=== PATIENT | male | born 1960 | race African-American/Black ===

== ENCOUNTER → 2017-01-16 | Outpatient (CLI) | payer OTHER ==
[2017-01-16 11:58] VITALS: BP 141/90; RESP 14
--- NOTE | 2017-01-16 12:16 | P.HPIM ---
History of Present Illness H&P Date: 01/16/17 Chief Complaint: low back pain This is a 56-year-old patient referred by Dr. Cohen for chronic pain in low back with radiation to LLE and both feet. Patient has been taking medications from Dr. Cohen including [place] medications with some relief; Dr. Cohen has told him that he needs spine surgery . Patient denies adverse drug effects from medications. Patient also denies new-onset weakness, bowel/bladder incontinence , or any other signs or symptoms of cauda equina syndrome. There are no signs of acute intoxication, and no indications of medication diversion or overuse. Patient notes that pain worsens significantly with standing and walking and improves with rest, heat, and medication. Patient has used several types of medications for pain, including NSAIDS, OPIOIDS ([place]), TRAMADOL. Patient HAS NOT had surgery. Patient HAS NOT had injections. Patient HAS had physical therapy recently. In addition to above, 13-point review of systems is also negative for chest pain , shortness of breath, changes in vision, changes in hearing, new onset weakness , abdominal pain, diarrhea, extreme fatigue, malaise, fever, skin changes, homicidal or suicidal ideation, or bowel or bladder incontinence. Vital Signs: Reviewed in EMR Gen: WDWN, AAOx3, NAD HEENT: NCAT, EOMI, hearing grossly normal Pulm: resp unlabored Abd: soft, NT, ND Neck: supple, trachea midline ROM in flexion lumbar spine: reduced ROM in extension lumbar spine: reduced Lumbar paravertebral tenderness: + Facet loading: + bilateral SI joint tenderness: + R > L Víctor's test: + R > L Straight leg raise: + LLE at 3 degrees Lower extremity: decreased strength secondary to pain LLE; decreased sensation in LLE to pinprick Neuro: CN II-XII grossly intact, muscle strength lower extremities PRESERVED Past Medical History - Past Family History Mother Family Medical History: CVA/TIA, Hypertension Father Family Medical History: Cancer Additional Family Medical History / Comment(s): multiple myloma Medications and Allergies Allergies Allergy/AdvReac Type Severity Reaction Status Date / Time No Known Allergies Allergy Verified 01/16/17 11:37 Physical Exam Vitals: Intake and Output 01/15/17 01/16/17 01/16/17 22:59 06:59 14:59 Other: Weight 98.43 kg Patient Weight 01/17/17 06:59 Weight 98.43 kg Results Comments: MRI lumbar spine without contrast dated 11/16/2016 demonstrates a disc bulge at the L1-L2 level that is abutting the exiting right L1 nerve root in the foramen. At the L3-L4 level there is bilateral facet hypertrophy and bulging disc and left paracentral disc protrusion contacting the left L3 nerve root within the foramen without jorge compression. At the L4-L5 level there is a right foraminal disc extrusion compressing the exiting right L4 nerve root within the foramen is moderate central canal stenosis due to a bulging disc and blood bilateral facet hypertrophy. At the L5-S1 level there is mild central canal stenosis due to bulging disc and bilateral facet hypertrophy there is severe left and moderate right neural foraminal narrowing due to osteophytic spurring and bulging disc. There is compression of the exiting L5 nerve root in the foramen. There is mild levoscoliosis. Assessment and Plan (1) Lumbar spinal stenosis Status: Chronic (2) Lumbar radiculopathy Status: Chronic (3) Lumbar spondylosis Status: Chronic Plan: Plan: 1. Explanation: Opioid and psychological risk scores were reviewed. Diagnoses , prognoses, and multiple treatment options including but not limited to physical therapy, interventional therapies, adjuvant medical therapies, narcotic medication therapies, and surgery were discussed with the patient and all questions were answered to the patient's satisfaction. 2. Opioid agreement: no opioids prescribed today 3. Counseling: The patient was counseled extensively on SMOKING CESSATION, BODY MASS INDEX, EXERCISE. Specifically, the patient was instructed regarding the importance of smoking cessation, weight control, and exercise in the context of both chronic pain and overall health. 4. Procedures: LESI series 5. Consultations: none 6. Investigations: none 7. Medications: none prescribed 8. Disposition: patient wishes to think more about LESIs, can f/u as needed PQRS measures: 1-Patient's medications are documented in the chart. 2-Tobacco use is positive, counseling given 3-Patient has not had a pneumococcal vaccine. 4-Advanced care planning discussed, patient unable to give. 5-Opioid contract signed with the patient. 6-Pain positive, follow-up visit or procedure PRN 7-Patient's blood pressure measured and documented, and patient will follow up with the primary care due to hypertension. 8-Patient's weight was measured, and body mass index ABOVE the normal limits, and counseling was done. Patient instructed to follow up with PCP. 9-Patient WAS NOT identified as an unhealthy alcohol user. Time with Patient: Greater than 30
== END | disposition home or self-care (01) ==
LOC: PNWHC3 11:26
PROVIDERS: ATTEND Anesthesiology
DX: M48.06 Spinal stenosis, lumbar region (principal); M47.26 Other spondylosis with radiculopathy, lumbar region
CPT/HCPCS: 99201

== ENCOUNTER 2018-02-05 12:42 | Emergency (ER) | payer BC, OTHER ==
[2018-02-05 12:49] VITALS: BP 144/89; PULSE 75; RESP 18; TEMP 98.2
--- NOTE | 2018-02-05 13:04 | ED ---
Extremity Problem HPI - General Chief complaint: Extremity Problem,Nontraumatic Stated complaint: knee pain Time Seen by Provider: 02/05/18 12:50 Source: patient, RN notes reviewed, old records reviewed Mode of arrival: ambulatory Limitations: no limitations - History of Present Illness Initial comments: Patient is a 57-year-old male presents emergency department today with chief complaint of right knee pain. 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 Patient states that he had no significant trauma to the knee. He states it does feel swollen. Patient states that he is able to ambulate without significant difficulty. The pain started today while he was at work and he left early. - Related Data Home Medications Medication Instructions Recorded Confirmed amLODIPine [Norvasc] 10 mg PO HS 01/16/17 02/05/18 diphenhydrAMINE [Benadryl] 25 mg PO HS 01/16/17 02/05/18 Previous Rx's Medication Instructions Recorded Ibuprofen 600 mg PO TID #20 tablet 02/05/18 Allergies Allergy/AdvReac Type Severity Reaction Status Date / Time No Known Allergies Allergy Verified 02/05/18 13:05 Review of Systems ROS Statement: Those systems with pertinent positive or pertinent negative responses have been documented in the HPI. ROS Other: All systems not noted in ROS Statement are negative. Past Medical History Past Medical History: Hypertension Additional Past Medical History / Comment(s): chronic back History of Any Multi-Drug Resistant Organisms: None Reported Past Surgical History: Breast Surgery, Orthopedic Surgery Additional Past Surgical History / Comment(s): right toe surgery, scrotum surgery as a chiild Past Anesthesia/Blood Transfusion Reactions: No Reported Reaction Past Psychological History: Anxiety, Depression Smoking Status: Current every day smoker Past Alcohol Use History: None Reported Past Drug Use History: None Reported - Past Family History Mother Family Medical History: CVA/TIA, Hypertension Father Family Medical History: Cancer Additional Family Medical History / Comment(s): multiple myloma General Exam - General Exam Comments Initial Comments: 57-year-old male. Alert and oriented. No significant distress. Limitations: no limitations General appearance: alert, in no apparent distress Head exam: Present: atraumatic, normocephalic, normal inspection Eye exam: Present: normal appearance, PERRL, EOMI. Absent: scleral icterus, conjunctival injection, periorbital swelling ENT exam: Present: normal exam, mucous membranes moist Neck exam: Present: normal inspection. Absent: tenderness, meningismus, lymphadenopathy Respiratory exam: Present: normal lung sounds bilaterally Cardiovascular Exam: Present: regular rate, normal rhythm, normal heart sounds. Absent: systolic murmur, diastolic murmur, rubs, gallop, clicks GI/Abdominal exam: Present: soft, normal bowel sounds. Absent: distended, tenderness, guarding, rebound, rigid Extremities exam: Present: normal inspection, full ROM, normal capillary refill. Absent: tenderness, pedal edema, joint swelling, calf tenderness Right Upper Leg exam: Present: normal inspection, full ROM Knee exam: Present: full ROM, swelling (Patient does have swelling noted to the anterior aspect of the knee. He does have full range of motion.), crepitus ( Patient is have crepitus with extension.). Absent: normal inspection Lower Leg exam: Present: normal inspection, full ROM Ankle exam: Present: normal inspection, full ROM Foot/Toe exam: Present: normal inspection, full ROM Neurovascular tendon exam: Present: no vascular compromise Gait: observed and normal Back exam: Present: normal inspection Neurological exam: Present: alert, oriented X3, CN II-XII intact Psychiatric exam: Present: normal affect, normal mood Skin exam: Present: warm, dry, intact, normal color. Absent: rash Course Vital Signs 02/05/18 12:46 Temperature 98.2 F Pulse Rate 75 Respiratory 18 Rate Blood Pressure 144/89 O2 Sat by Pulse 99 Oximetry Medical Decision Making - Medical Decision Making 57 -year-old male presents today with right knee pain and swelling. Patient has evidence of minor swelling. Patient at this time has full range of motion, normal pulses and sensation over the lower extremity. He does have some crepitus noted on full extension. Patient denies any fevers or chills. X-ray today shows evidence of moderate to severe arthritis with this most retail at first swelling. Patient at this time will be treated with a temperature medication Yared wrap. I discussed following up with PCP. Discussed return parameters. - Radiology Data Radiology results: report reviewed No Acute fracture dislocation. Small suprapatellar bursal fluid collection. Moderate to severe osteoarthritis. Disposition Clinical Impression: Knee osteoarthritis, Knee bursitis Disposition: HOME SELF-CARE Condition: Good Instructions: Osteoarthritis (ED), Knee Bursitis (ED) Additional Instructions: Patient advised follow-up with primary care provider and follow-up with autism motor specialist. Return to the emergency department if any alarming signs or symptoms occur. Prescriptions: Ibuprofen 600 mg PO TID #20 tablet Is patient prescribed a controlled substance at d/c from ED?: No Referrals: Jocelin Baeza MD [Primary Care Provider] - 1-2 days Esteban Arvizu MD [STAFF PHYSICIAN] - 1-2 days Time of Disposition: 13:33
--- NOTE | 2018-02-05 13:21 | XR ---
EXAMINATION TYPE: XR knee complete RT DATE OF EXAM: 02/05/2018 COMPARISON: NONE HISTORY: Pain TECHNIQUE: Four views are submitted. FINDINGS: Diffuse osteopenia. There is hypertrophic change and narrowing of the joint spaces particularly along the medial compartment and patellofemoral joint. There is a suprapatellar bursal fluid collection. O sseous structures are intact. No acute fracture seen. IMPRESSION: 1. No acute fracture or dislocation. 2. Small suprapatellar bursal fluid collection. 2. Moderate to severe osteoarthritis.
== END 2018-02-05 14:01 | disposition home or self-care (01) ==
LOC: EC 12:42
DX: M17.11 Unilateral primary osteoarthritis, right knee (principal); M70.51 Other bursitis of knee, right knee; I10 Essential (primary) hypertension; F17.200 Nicotine dependence, unspecified, uncomplicated; Z98.890 Other specified postprocedural states; Z79.899 Other long term (current) drug therapy
CPT/HCPCS: 99284

== ENCOUNTER → 2018-05-28 | Outpatient (CLI) | payer BC, OTHER ==
[2018-05-28 14:03] VITALS: BP 125/80; PULSE 75; RESP 18
--- NOTE | 2018-05-28 14:21 | P.PN ---
Subjective Progress Note Date: 05/28/18 This is a 58-year-old gentleman with history of lower back pain with radiation to the left lower extremity down to the mid calf area. He denies any numbness or tingling in the lower extremities or any weakness. The patient has been getting worse. He has been to our clinic once before about 2 years ago and that time we recommended that he gets an epidural steroid injection done but he was hesitant about that he wanted to think about it but right now he is willing to try it. He had seen a neurosurgeon who recommended that he gets surgery done on his back. His lumbar spine MRI showed multilevel of disc bulging, stenosis, neural foraminal stenosis and nerve root compression. The patient uses [facility] from different prescriber. Today, pt denies new-onset weakness, bowel/bladder incontinence, or any other signs or symptoms of cauda equina syndrome. There are no signs of acute intoxication, and no indications of medication diversion or overuse. In addition to above, 13-point review of systems is also negative for chest pain , shortness of breath, changes in vision, changes in hearing, new onset weakness , abdominal pain, diarrhea, extreme fatigue, malaise, fever, skin changes, homicidal or suicidal ideation, or bowel or bladder incontinence. Vital Signs: Reviewed in EMR Gen: AAOx3, NAD HEENT: PERRLA,hearing grossly normal Pulm: resp unlabored,CTA Heart:S1,S2, No Mur Neck: supple, trachea midline Neuro exam of the lower extremities: Absent deep tendon reflexes however the muscle strength is normal bilaterally. Straight leg raising test: Negative on the left side Tenderness in the paravertebral musculature: Mildly positive on the left side of his lumbar spine Neuro: CN II-XII grossly intact, Imaging: Reviewed in EMR/chart Assessment: Lumbar spondylosis without myelopathy Lumbar stenosis Plan: 1. Explanation: Opioid and psychological risk scores were reviewed. Diagnoses , prognoses, and multiple treatment options including but not limited to physical therapy, interventional therapies, adjuvant medical therapies, narcotic medication therapies, and surgery were discussed with the patient and all questions were answered to the patient's satisfaction. 2. Opioid agreement: We do not prescribe opioids for this patient 3. Counseling: The patient was counseled extensively on SMOKING CESSATION, BODY MASS INDEX, EXERCISE. Specifically, the patient was instructed regarding the importance of smoking cessation, obesity, and exercise in the context of both chronic pain and overall health. 4. Procedures: Scheduled for lumbar transforaminal epidural steroid injection on the left L4-5 level. We will do this procedure only once and if it does not give me with the results and then we will plan on doing lumbar diagnostic medial branch block. 5. Consultations: None 6. Investigations: None 7. Medications: None 8. Disposition: Return to clinic for the above-mentioned procedure as soon as possible 9. Maps were reviewed and were appropriate. PQRS measures: 1-Patient's medications are documented in the chart. 2-Tobacco use is positive, counseling given 3-Patient has not had a pneumococcal vaccine. 4-Advanced care planning discussed, patient unable to give 5-Opioid contract not signed with the patient. Opioids are not prescribed by our clinic 6-Pain positive, follow-up visit or procedure scheduled 7-Patient's blood pressure measured and documented within normal limits. 8-Patient's weight was measured, and body mass index in the normal limits, and counseling was done. 9-Patient WAS NOT identified as an unhealthy alcohol user. Objective - Vital Signs Vital signs: Vital Signs Temp Pulse 75 05/28/18 13:56 Resp 18 05/28/18 13:56 BP 125/80 05/28/18 13:56 Pulse Ox 98 05/28/18 13:56 Intake & Output 05/27/18 05/28/18 05/28/18 18:59 06:59 18:59 Weight 90.718 kg
== END | disposition home or self-care (01) ==
LOC: PNWHC3 13:48
PROVIDERS: ATTEND Anesthesiology
DX: M48.061 Spinal stenosis, lumbar region without neurogenic claudication (principal); M51.26 Other intervertebral disc displacement, lumbar region; M99.73 Connective tissue and disc stenosis of intervertebral foramina of lumbar region; M47.816 Spondylosis without myelopathy or radiculopathy, lumbar region; Z79.891 Long term (current) use of opiate analgesic; Z72.0 Tobacco use; Z71.6 Tobacco abuse counseling
CPT/HCPCS: 99211

== ENCOUNTER 2018-06-18 07:21 | Day surgery (SDC) | payer BC, OTHER ==
[2018-06-17 08:19] VITALS: BMI 29.4
[2018-06-18 07:40] VITALS: TEMP 98
[2018-06-18] MEDS ORDERED: LACTATED RINGERS 1,000 ML IV ONE (07:40)
[2018-06-18] MEDS ORDERED: LIDOCAINE 1% 20 ML VIAL (10MG/ML) FOR IV START INTRADERMA ONE (07:44)
--- NOTE | 2018-06-18 08:41 | P.PCN ---
Date of Procedure: 06/18/18 Anesthesia: MAC (Conscious sedation) Description of Procedure: DESCRIPTION OF PROCEDURE(S): PREOPERATIVE DIAGNOSIS: Lumbar radiculopathy POSTOPERATIVE DIAGNOSIS: Lumbar radiculopathy PROCEDURE 1. Transforaminal epidural steroid injection under fluoroscopic guidance left L4 5 2. Lumbar epidurogram ANESTHESIA: Local with 1% lidocaine 5 ml ; 2 mg of Versed and 50 g of fentanyl PROCEDURE INDICATION: The patient with low back pain and radiculopathy symptoms unresponsive to conservative treatment. PROCEDURE DESCRIPTION / TECHNIQUE: The patient was seen and identified in the preoperative area. Risks, benefits, complications, and alternatives were discussed with the patient. The patient agreed to proceed with the procedure and signed the consent. IV was started, and vital signs were stable. Patient was taken to the OR and time out was completed. The patient was placed in the prone position on procedure table and a pillow was placed under the abdomen to reduce lumbar lordosis. The lumbosacral area was prepped and draped in the usual sterile fashion. Vital signs were closely monitored during the procedure. Conscious sedation was used. Using oblique fluoroscopy, the chin of the ``Jesús dog at the pedicle and the skin and deeper tissues just below was localized with 1% lidocaine. Subsequently, a 22-gauge 3.5-inch spinal needle was advanced under a tunneled view fluoroscopic guidance just underneath the chin of the ``Jesús dog. Under lateral fluoroscopy, the needle was then advanced to the posterior border interforaminal space. After negative aspiration of CSF and blood and with no paresthesias, 1 mL of Omnipaque-240 contrast dye was injected excellent epidurogram. Subsequently, of the 10ml solution consisting of 10mg/ml dexamethasone with 1 ml PF normal saline, and 1 ml 0.25% marcaine 3ml was injected. Needle was removed. COMPLICATIONS: None COMMENTS: DISPOSITION / PLANS: The patient was placed in a supine position and transferred to the recovery area in a stable condition for observation. There was no evidence of lower extremity motor or sensory deficit after the procedure. Patient was discharged from the recovery room after meeting discharge criteria. Home discharge instructions were given to the patient by the staff. The patient was reexamined prior to discharge. follow up as needed
[2018-06-18] MEDS ORDERED: IV FLUID CONTINUATION 750 ML IV ONE (08:44)
--- NOTE | 2018-06-18 09:05 | FL ---
EXAMINATION TYPE: FL guided pain mgmt statistic DATE OF EXAM: 06/18/2018 HISTORY: Flouroscopy time 6 seconds of fluoroscopy provided. IMPRESSION: 1. Fluoroscopy time.
[2018-06-18 09:08] VITALS: BP 113/95; PULSE 73; RESP 18
== END 2018-06-18 09:22 | disposition home or self-care (01) ==
LOC: ORPAIN 07:21
PROVIDERS: ATTEND Hospitalist
DX: M47.26 Other spondylosis with radiculopathy, lumbar region (principal); M48.061 Spinal stenosis, lumbar region without neurogenic claudication; M51.16 Intervertebral disc disorders with radiculopathy, lumbar region; I10 Essential (primary) hypertension; Z72.0 Tobacco use
CPT/HCPCS: 64483; J2250; J1100; J3010; Q9966

== ENCOUNTER 2018-12-13 10:40 | Emergency (ER) | payer BC, OTHER ==
[2018-12-13 10:44] VITALS: RESP 16; TEMP 97.3
[2018-12-13] MEDS ORDERED: KETOROLAC 60 MG/2 ML VIAL IM STA (11:04)
--- NOTE | 2018-12-13 11:10 | ED ---
General Adult HPI - General Chief complaint: Extremity Problem,Nontraumatic Stated complaint: Lt leg pain Time Seen by Provider: 12/13/18 11:00 Source: patient, RN notes reviewed, old records reviewed Mode of arrival: ambulatory Limitations: no limitations - History of Present Illness Initial comments: 58-year-old male patient past medical history chronic back pain, hypertension presents to ED with left leg pain that began last night. Patient denies any recent falls or trauma. Patient reports that the pain is at the lateral aspect of the thigh. Patient has been ambulatory since. Denies any history of blood clot, denies any chest pain shortness of breath. Denies any other complaints at this time. Systemic: Pt denies fatigue, fever/chills, rash. Pt denies weakness, night sweats, weight loss. Neuro: Pt denies headache, visual disturbances, syncope or pre-syncope. HEENT: Pt denies ocular discharge or irritation, otalgia, rhinorrhea, pharyngi tis or notable lymphadenopathy. Cardiopulmonary: Pt denies chest pain, SOB, heart palpitations, dyspnea on exertion. Abdominal/GI: Pt denies abdominal pain, n/v/d. : Pt denies dysuria, burning w/ urination, frequency/urgency. Denies new onset urinary or bowel incontinence. MSK: Pt denies myalgia, loss of strength or function in extremities. Neuro: Pt denies new onset weakness, paresthesias. - Related Data Home Medications Medication Instructions Recorded Confirmed amLODIPine [Norvasc] 10 mg PO HS 01/16/17 06/17/18 diphenhydrAMINE [Benadryl] 25 mg PO HS 01/16/17 06/17/18 HYDROcodone/APAP 5-325MG [[place] 1 tab PO BID 05/28/18 06/17/18 5-325] Ibuprofen 600 mg PO TID PRN 05/28/18 06/17/18 Allergies Allergy/AdvReac Type Severity Reaction Status Date / Time No Known Allergies Allergy Verified 12/13/18 10:43 Review of Systems ROS Statement: Those systems with pertinent positive or pertinent negative responses have been documented in the HPI. ROS Other: All systems not noted in ROS Statement are negative. Past Medical History Past Medical History: Hypertension Additional Past Medical History / Comment(s): chronic back History of Any Multi-Drug Resistant Organisms: None Reported Past Surgical History: Breast Surgery, Orthopedic Surgery Additional Past Surgical History / Comment(s): right toe surgery, scrotum surgery as a chiild, pain clinic procedures Past Anesthesia/Blood Transfusion Reactions: No Reported Reaction Past Psychological History: Anxiety, Depression Smoking Status: Current every day smoker Past Alcohol Use History: None Reported Past Drug Use History: None Reported - Past Family History Mother Family Medical History: CVA/TIA, Hypertension Father Family Medical History: Cancer Additional Family Medical History / Comment(s): multiple myloma General Exam - General Exam Comments Initial Comments: Constitutional: NAD, AOX3, Pt has pleasant affect. HEENT: NC/AT, trachea midline, neck supple, no lymphadenopathy. Posterior pharynx non erythematous, without exudates. External ears appear normal, without discharge. Mucous membranes moist. Eyes PERRLA, EOM intact. There is no scleral icterus. No pallor noted. Cardiopulmonary: RRR, no murmurs, rubs or gallops, no JVD noted. Lungs CTAB in anterior and posterior devries. No peripheral edema. Abdominal exam: Abdomen soft and non-distended. Abdomen non-tender to palpation in all 4 quadrants. Bowel sounds active in LLQ. No hepatosplenomegaly. No ecchymosis Neuro: CN II-XII grossly intact. No nuchal rigidity. No raccon eyes, no zheng sign, no hemotympanum. No cervical spinal tenderness. MSK: No posterior calf tenderness bilaterally, homans sign negative bilaterally. Posterior tibialis and radial pulse +2 bilaterally. Sensation intact in upper and lower extremities. Full active ROM in upper and lower extremities, 5/5 stregnth. No erythema or skin changes. Limitations: no limitations Course Vital Signs 12/13/18 10:43 Temperature 97.3 F L Pulse Rate 68 Respiratory 16 Rate Blood Pressure 145/89 O2 Sat by Pulse 100 Oximetry Medical Decision Making - Medical Decision Making 58-year-old male patient past medical history chronic back pain, hypertension presents to ED with left leg pain that began last night. Patient denies any recent falls or trauma. Patient reports that the pain is at the lateral aspect of the thigh. Patient has been ambulatory since. Denies any history of blood clot, denies any chest pain shortness of breath. Denies any other complaints at this time. Patient vital signs stable, afebrile. Physical exam did not display acute pathology. Venous Doppler negative. Patient was discharged, follow-up with primary care provider, return to ER if condition worsens. Case discussed with Dr. Clark. Disposition Clinical Impression: Myalgia Disposition: HOME SELF-CARE Condition: Stable Instructions (If sedation given, give patient instructions): Musculoskeletal Pain (ED) Additional Instructions: Patient to adhere to previously discussed treatment plan and will take medication(s) as directed. Patient to follow up with PCP in 1-2 days. Patient to return to ED if symptoms do not improve. Follow-up with orthopedic consult if pain persists. Is patient prescribed a controlled substance at d/c from ED?: No Referrals: None,Stated [Primary Care Provider] - 1-2 days Coleman Moreno DO [Doctor of Osteopathic Medicine] - 1-2 days [facility] Juliana gtz [NON-STAFF] - 1-2 days
--- NOTE | 2018-12-13 12:00 | US ---
EXAMINATION TYPE: US venous doppler duplex LE LT DATE OF EXAM: 12/13/2018 11:51 AM COMPARISON: NONE CLINICAL HISTORY: Pain. SIDE PERFORMED: Left TECHNIQUE: The lower extremity deep venous system is examined utilizing real time linear array sonog simon with graded compression, doppler sonography and color-flow sonography. VESSELS IMAGED: External Iliac Vein (EIV) Common Femoral Vein Deep Femoral Vein Greater Saphenous Vein * Femoral Vein Popliteal Vein Small Saphenous Vein * Proximal Calf Veins (* superficial vessels) There is normal flow, compressibility, vascular waveforms. Left Leg: Negative for DVT IMPRESSION: No evident deep venous thrombosis at or above the left knee. Follow-up as indicated.
[2018-12-13 12:41] VITALS: BP 105/79; PULSE 71
== END 2018-12-13 12:40 | disposition home or self-care (01) ==
LOC: EC 10:40
DX: M79.18 Myalgia, other site (principal); I10 Essential (primary) hypertension; G89.29 Other chronic pain; F17.200 Nicotine dependence, unspecified, uncomplicated; Z79.891 Long term (current) use of opiate analgesic; Z79.899 Other long term (current) drug therapy
CPT/HCPCS: 93971; 99284; 96372; J1885